=== PATIENT | male | born 1950 | race Caucasian/White ===

== ENCOUNTER 2018-11-04 10:39 | Observation (INO) | payer OTHER, MEDICARE ==
[~2018-11-04] VITALS: Ht 182.9 cm; Wt 112.6 kg
[~2018-11-04 10:39] MED LIST: AUGMENTIN 875-1 EACH PO; CIPRO HC OTIC S10 ML AD; PERCOCET 7.5-31 EACH PO
[2018-11-04] MEDS ORDERED: TAMSULOSIN HCL0.4 MG PO (10:54)
--- NOTE | 2018-11-04 13:57 | NUR ---
PT ADMITTED VIA STREACHER, VOIDED IN THE URINAL, AND THEN TO BED. WEARS HOME CPAP AND WILL LET RT KNOW THAT PATIENT MAY NEED A CPAP
--- NOTE | 2018-11-04 15:51 | NUR ---
PATIENTS HEART RATE REMAINS IN THE 120'S DR YOON NOTIFIED NEW ORDERS RECEIVED CARDIZEM 30MG PO Q 6 HOURS AND START NOW.
--- NOTE | 2018-11-04 16:21 | NUR ---
FILE SYSTEM INSTALLER HERE AT THIS TIME, PT HEART RATE IS CURRENTLY IN THE 120'S AT THIS TIME, AND THEN DECREASES TO THE 1TEENS.
--- NOTE | 2018-11-04 16:44 | NUR ---
ASSESSMENT COMPLETED AFTER ECHO COMPLETED. PT FEELS THAT HE IS UPTIGHT WITH BEING IN THE HOSPITAL AND NOT FEELING WELL.
--- NOTE | 2018-11-04 17:02 | NUR ---
DR ORANTES NOTIFIED OF BLOOD PRESUREE, NO NEW ORDERS AT THIS TIME.
--- NOTE | 2018-11-04 18:47 | NUR ---
PT STATES THAT HE DOES FEEL BETTER AT THIS TIME. HEART RAT IN THE 90'S TO 1-TEEN'S AT THIS TIME. REMAINS IN A-FIB.
--- NOTE | 2018-11-04 19:45 | NUR ---
PATIENT IS RESTFUL WITH EYES OPEN WATCHING TV. DENIES FEELING SOB, DENIES CHEST PAIN. STATES "I FEEL A LITTLE FLUSHED, THEY TURNED THE HEAT UP BECAUSE IT WAS SO COLD IN HERE." PATIENT IS AFEBRILE. PO DILTIAZEM AND METOPROLOL GIVEN. PATIENT DENIES FURTHER NEEDS. ASSESSMENT DONE. CALL LIGHT WITHIN REACH, AT BEDSIDE. HEART RATE <100, BP 144/96 (108),
--- NOTE | 2018-11-04 21:00 | NUR ---
PATIENT RESTFUL WATCHING TV, BEATHING IS EVEN AND UNLABORED. DENIES NEEDS AT THIS TIME. CALL LIGHT WITHIN REACH.
--- NOTE | 2018-11-04 22:00 | NUR ---
UPDATED DR. YOON ABOUT PATIENT'S HEART RATE >100 WITH ACTIVITY, HEART RATE HIGH 90s AT REST. NO NEW ORDERS AT THIS TIME, NOTIFY DR. YOON IF PATIENT'S HEART RATE BECOMES ELEVATED IN 130s AT REST AND MAINTAINING AT THIS LEVEL.
--- NOTE | 2018-11-04 23:00 | NUR ---
PATIENT UP TO BEDSIDE INDEPENDENTLY TO URINATE. HEART RATE BETWEEN 115 AND 135 WITH ACTIVITY. NOW RESTING IN BED AGAIN, BREATHING IS EVEN AND UNLABORED, DENIES FEELING SOB, NO CHEST PAIN. RT TO ROOM TO PUT PATIENT ON CPAP. DENIES FURTHER NEEDS. AT REST, HEART RATE BETWEEN 95 AND 110. CALL LIGHT WITHIN REACH.
--- NOTE | 2018-11-05 00:43 | NUR ---
PATIENT RESTFUL WITH EYES CLOSED, BREATHING IS EVEN AND UNLABORED, O2 SATURATION IS 98% WITH CPAP, RR 17. HEART RATE BETWEEN 95 AND 110 AT REST. BP 142/98 (108). CALL LIGHT WITHIN REACH.
--- NOTE | 2018-11-05 01:57 | NUR ---
PATIENT IS RESTFUL WITH EYES CLOSED. AWAKENS EASILY TO VOICE. STATES "I AM FEELING A LOT BETTER. I WAS ACTUALLY ABLE TO FALL ASLEEP FOR A LITTLE BIT." DENIES FEELING SOB, DENIES CHEST PAIN. UP TO BEDSIDE TO URINATE, HEART RATE BETWEEN 110 AND 130 WITH ACTIVITY. NOW RESTING IN BED AGAIN. DENIES FURTHER NEEDS. ASSESSMENT DONE, SCHEDULED METOPROLOL AND CARDIZEM GIVEN PO. CALL LIGHT WITHIN REACH.
--- NOTE | 2018-11-05 04:13 | NUR ---
PATIENT RESTING COMFORTABLY IN BED WITH EYES CLOSED. BREATHING IS EVEN AND UNLABORED, O2 SATURATION IS 92% WITH CPAP. HEART RATE REMAINS <100 WHILE AT REST, BP 111/83 (91). CALL LIGHT WITHIN REACH.
--- NOTE | 2018-11-05 05:28 | NUR ---
PATIENT SITTING AT BEDSIDE. URINATED SMALL AMOUNT. HEART RATE NOTED TO BE ELEVATED BETWEEN 110 AND 125. NOW RESTING IN BED AGAIN, BREATHING IS EVEN AND UNLABORED. NOW RESTING WITH CPAP AGAIN, HEART RATE <100. CALL LIGHT WITHIN REACH.
--- NOTE | 2018-11-05 06:59 | EKG ---
[facility] [address] [place] [address] Signed Atrial fibrillation with rapid ventricular response Low voltage QRS Septal infarct (cited on or before 04-NOV-2018) Abnormal ECG When compared with ECG of 04-NOV-2018 10:50, (Unconfirmed) Atrial fibrillation has replaced Atrial flutter Confirmed by LI YOON MD ([id number]) on 11/05/2018 6:59:40 AM Electronically Signed By: LI YOON MD 11/05/18 0659 PATIENT NAME: DAKOTAHMELISSA BRUCE Electrocardiogram DATE OF : 54 PHYSICIAN: LI YOON MD REPORT #: [id number] REPORT IS CONFIDENTIAL AND NOT TO BE RELEASED WITHOUT AUTHORIZATION
--- NOTE | 2018-11-05 07:00 | EKG ---
[facility] [address] [place] [address] Signed Atrial fibrillation with slow ventricular response Septal infarct (cited on or before 04-NOV-2018) Abnormal ECG When compared with ECG of 04-NOV-2018 10:50, (Unconfirmed) Vent. rate has decreased BY 82 BPM Confirmed by LI YOON MD ([id number]) on 11/05/2018 6:59:56 AM Electronically Signed By: LI YOON MD 11/05/18 0700 PATIENT NAME: DAKOTAHMELISSA Electrocardiogram DATE OF : 54 PHYSICIAN: LI YOON MD REPORT #: [id number] REPORT IS CONFIDENTIAL AND NOT TO BE RELEASED WITHOUT AUTHORIZATION
--- NOTE | 2018-11-05 07:11 | NUR ---
PATIENT UP TO BEDSIDE, ABLE TO VOID SMALL AMOUNT OF URINE. NOW RESTING IN BED AGAIN, BREATHING IS EVEN AND UNLABORED. HEART RATE UP TO 120 WITH ACTIVITY. BETWEEN 95 AND 110 AT REST. DENIES FURTHER NEEDS. CALL LIGHT WITHIN [facility].
--- NOTE | 2018-11-05 07:58 | NUR ---
Pt resting with hob elevated eating breakfast and watching tv. Assessment completed. VSS, am medication administered. HR remains irregular. Pt denies sob, chest pain or palpitations. Call light and h20 in reach. No further concerns or requests voiced.
--- NOTE | 2018-11-05 08:59 | NUR ---
PT RESTING SUPINE IN BED WITH HOB ELEVATED AND WATCHING TV. PT DENIES ANY NEW SYMPTOMS "NO I'M FEELING PRETTY GOOD NOW". PO FLOMAX ADMINISTERED. PT ATE 100% OF BREAKFAST AND CONTINUES TO PRODUCE QS CLEAR YELLOW URINE. FRESH ICE WATER AND CALL LIGHT IN REACH. NO FURTHER NEEDS OR CONCERNS VOICED.
--- NOTE | 2018-11-05 09:36 | NUR ---
PT RESTING IN BED WATCHING TV AND CONVERSING WITH FAMILY. VSS. PO METOPROLOL ADMINISTERED. CALL LIGHT AND H20 IN REACH. PT DENIES NEW SYMPTOMS OR NEEDS/CONCERNS AT THIS TIME.
--- NOTE | 2018-11-05 10:58 | NUR ---
pt sitting up in bed visiting with family. Pt denies sob, palpitations or chest pain. Pt denies needs or concerns. Urinal emptied of 350mls of clear yellow urine. call light and h20 in reach. HR remains to be mostly running between 80's to 90's at rest.
--- NOTE | 2018-11-05 12:00 | NUR ---
PT AWARE OF PLANNED TRANSFER TO MED SURG ROOM 112. REPORT GIVEN TO JUAN CHEN. PT TRANSFERED TO MED SURGE 112 VIA BED AND ALL PT'S PERSONAL BELONGINGS WERE SENT TO HIS NEW ROOM WEEL INCLUDING CPAP MACHINE WITH PT'S PERSONAL CPAP MASK. NO FURTHER CONCERNS OR REQUESTS WERE VOICED BY PT OR PT'S , WHO REMAINS WITH PATIENT. JUAN GUERRIER IN TO SEE PT. CALL LIGHT AND H20 IN REACH.
--- NOTE | 2018-11-05 12:38 | NUR ---
PT ARRIVED AT 1200, ALL LOBES ARE CLEAR, NO EDEMA NOTED. PT ALL LOBES ARE CLEAR, PT IS AAO X4, PT IS WALKING WELL AND DENIES DIZZINESS. WILL CONTINUE TO MONITOR.
--- NOTE | 2018-11-05 15:00 | NUR ---
PT IS AWAKE IN BED. NO NEEDS OR CONCERNS NOTED AT THIS TIME.
--- NOTE | 2018-11-05 17:35 | NUR ---
PATIENT IN BED WATCHING TV. IN ROOM. VITAL SIGNS AND I&O DONE. ICE WATER GIVEN. CALL LIGHT WITHIN REACH. NO OTHER NEEDS AT THIS TIME
--- NOTE | 2018-11-05 18:11 | NUR ---
PT TRX FROM CCU TO FLOOR AT 1200. SINCE THEN PT HAD NO ISSUES TO SPEAK OF. ALL LOBES ARE CLEAR, NO PERIPHERAL EDEMA NOTED. HR ON TELE # 10 IS IN THE 80'S -115. PT DENIES PALPATATIONS OR SOB. PT ALSO WALKED THE HALLWAY WITHOUT DIFFICULTY. NO NEW CONCERNS NOTED SO FAR THIS SHIFT.
--- NOTE | 2018-11-05 19:00 | NUR ---
SHIFT REPORT RECEIVED FROM JUAN CHEN. PT IN BED AWAKE AND VISITING WITH FAMILY AND FRIENDS. TELE #[address], HR WNL AND IRREGULAR. PT DENIES NEEDS AT THIS TIME. CALL LIGHT IN REACH.
--- NOTE | 2018-11-05 20:06 | NUR ---
ASSESSMENT COMPLETE. PT A/O X4, DENIES PAIN. SCHEDULED CARDIZEM ADMINISTERED. VSS. PT DENIES NEEDS AT THIS TIME. PT AMBULATES INDEPENDENTLY IN ROOM, PREPARING TO WALK IN HALLWAY WITH . IV FLUSHED AND PATENT AT THIS TIME. PT ON TELE #10, HR WNL, IRREGULAR RHYTHM.
--- NOTE | 2018-11-05 22:22 | NUR ---
EMPTIED URINAL AND BROUGHT FRESH ICEWATER. PT IS IN BED WITH SCDS ON. CALLED RT TO SET UP CPAP. HE DENIES FURTHER NEEDS. CALL LIGHT IS CLOSE.
--- NOTE | 2018-11-05 23:27 | NUR ---
PT RESTING IN BED, EYES CLOSED, RR EVEN AND UNLABORED. TELE #[address], HR 80'S-90'S AND IRREGULAR. RESTING ON COUCH, BOTH APPEAR COMFORTABLE. CALL LIGHT IN REACH.
--- NOTE | 2018-11-06 02:20 | NUR ---
ASSESSMENT COMPLETE. NO NEW CONCERNS. PT A/OX4 DENIES PAIN AND SOB. TELE #10, HR90'S, 120'S WHEN PT WAS ATTEMPTING TO GET OUT OF BED AND VOID VIA BEDSIDE URINAL. QUICKLY RESOLVED. REMAINS IRREGULAR. IN ROOM. CPAP MACHINE IN PLACE. NO FURTHER NEEDS, CALL LIGHT IN REACH.
--- NOTE | 2018-11-06 04:37 | NUR ---
PT HAD A VERY GOOD NIGHT. A/OX4, DENIED PAIN ALL SHIFT. TELE #10, IRREGULAR, HR 80'S-ONE TEENS. PT AMBULATES INDEPENDENTLY IN ROOM, USES CALL LIGHT APPROPERIATELY. CARDIAC DIET, TOLERATING WELL, NO NAUSEA THIS SHIFT, BOWEL TONES ACTIVE. CPAP AT NIGHT.
--- NOTE | 2018-11-06 06:04 | NUR ---
VITALS AND I&OS DONE AND CHARTED. CLEANED ROOM, GARBAGES EMPTIED. BEDSIDE TABLE AND CALL LIGHT IN REACH. FRESH ICE WATER GIVEN. PT NEEDS NOTHING AT THIS TIME.
[2018-11-06] MEDS ORDERED: TOPROL XL50 MG PO (09:48)
[2018-11-06] MEDS ORDERED: DILTIAZEM 24HR120 MG PO (09:48)
[2018-11-06] MEDS ORDERED: ASPIRIN EC325 MG PO (09:48)
--- NOTE | 2018-11-06 09:54 | NUR ---
PATIENT RESTING IN BED. FAMILY IN ROOM. VITAL SIGNS AND I&O DONE. CALL LIGHT WITHIN REACH. NO OTHER NEEDS AT THIS TIME
--- NOTE | 2018-11-06 10:00 | NUR ---
PT SALINE LOCKED AT THIS TIME.
--- NOTE | 2018-11-06 12:21 | NUR ---
PT SITTING IN BED AT THIS TIME, RESP EVEN AND NON LABORED. PERSONAL SUPPLIES AND CALL LIGHT WITHIN REACH.
--- NOTE | 2018-11-06 12:58 | NUR ---
PATIENT IN BED. AND RN IN ROOM. PATIENT IS DRESS AND THE LAST VITAL SIGNS WERE OBTAINED PRIOR DISCHARGE.
== END 2018-11-06 13:05 | disposition home or self-care (01) ==
LOC: ED 10:39 → CCU 10:42 → MS 11-05 12:00
PROVIDERS: ADMIT Internal Medicine
DX: I48.91 Unspecified atrial fibrillation (principal); R06.00 Dyspnea, unspecified; G47.33 Obstructive sleep apnea (adult) (pediatric); N40.0 Benign prostatic hyperplasia without lower urinary tract symptoms; Z79.899 Other long term (current) drug therapy; Z88.7 Allergy status to serum and vaccine
CPT/HCPCS: 71045; 80053; 83735; 84439; 84443; 84484; 85025; 93005; 93010; 93306; 94660; 96361; 96374; 99285-25; G0378; J7030

== ENCOUNTER 2022-07-27 15:31 | Emergency (ER) | payer MEDICARE, OTHER ==
[~2022-07-27] VITALS: Ht 182.9 cm; Wt 118.1 kg
[~2022-07-27 15:31] MED LIST changes: +ASPIRIN EC325 MG PO; +DILTIAZEM 24HR120 MG PO; +TAMSULOSIN HCL0.4 MG PO; +TOPROL XL50 MG PO
[2022-07-27] MEDS ORDERED: ELIQUIS5 MG PO (15:44)
[2022-07-27] MEDS ORDERED: NEURONTIN300 MG PO (15:52)
[2022-07-27] MEDS ORDERED: TRAMADOL HCL100 M2 PO (15:52)
[2022-07-27] MEDS ORDERED: ACETAMINOPHEN500 MG PO (15:53)
[2022-07-27] MEDS ORDERED: TIZANIDINE HCL4 M1 PO (15:54)
--- NOTE | 2022-07-31 20:43 | EKG ---
[facility] [address] [place] [place] [address] Signed Normal sinus rhythm Normal ECG When compared with ECG of 04-NOV-2018 11:39, Sinus rhythm has replaced Atrial fibrillation Confirmed by Tad Osorio MD () on 07/31/2022 8:42:42 PM Electronically Signed By: TAD OSORIO MD 07/31/222042 PATIENT NAME: DAKOTAHMELISSA Electrocardiogram DATE OF : 54 PHYSICIAN: TAD OSORIO MD REPORT #: [id number] REPORT IS CONFIDENTIAL AND NOT TO BE RELEASED WITHOUT AUTHORIZATION
== END 2022-07-27 20:56 | disposition home or self-care (01) ==
LOC: ED 15:31
DX: R07.2 Precordial pain (principal); I10 Essential (primary) hypertension; Z88.7 Allergy status to serum and vaccine; Z79.899 Other long term (current) drug therapy
CPT/HCPCS: 36415; 71045; 80053; 83690; 83735; 84484; 85025; 85379; 93005; 93010; 96374; 96375; 99285-25; J2270; J2405

== ENCOUNTER 2023-12-07 11:09 | Day surgery (SDC) | payer MEDICARE, OTHER ==
[~2023-12-07] VITALS: Ht 365.8 cm; Wt 118.0 kg
[~2023-12-07 11:09] MED LIST changes: +ACETAMINOPHEN500 MG PO; +ELIQUIS5 MG PO; +FISH OIL 1,0001 EAC6 PO; +IBLOOD GLUCOSE TEST STRIP 1 EA TEST VI PRN; +LACTATED RINGER'S 1,000 ML IV SCH; +LIDOCAINE HCL 1% 5 ML SDV INJ ONE; +MIDAZOLAM HCL 5 MG/5 ML VIAL IV PRN; +NEURONTIN300 MG PO; +OSTERA TABLET1 EACH PO; +SAW PALMETTO160 MG PO; +TIZANIDINE HCL4 M1 PO; +TRAMADOL HCL100 M2 PO; +fentaNYL citrate 100 MCG/2 ML VIAL IV PRN
[2023-12-07 12:23] VITALS: BP 163/91
[2023-12-07] MEDS ORDERED: MIDAZOLAM HCL 5 MG/5 ML VIAL ONE (13:00)
[2023-12-07] MEDS ORDERED: fentaNYL citrate 100 MCG/2 ML VIAL ONE (13:00)
--- NOTE | 2023-12-07 14:08 | NUR ---
12/07/23 1408 Sheets,Lee Ann 1400 PT ARRIVED TO PACU ON 3L VIA NC AND WAKES EASILY TO VERBAL STIMULI. PT DENIES PAIN. PLAN OF CARE DISCUSSED AND PT ENCOURAGED TO PASS GAS. 1407 O2 REMOVED.
[2023-12-07 14:30] VITALS: BP 134/80
--- NOTE | 2023-12-12 09:47 | OR ---
[facility] [address] [place], [place] [address] Signed DATE OF OPERATION: 12/07/2023 SURGEON: Garfield Grossman MD PREOPERATIVE DIAGNOSES: 1. Colon screening. 2. Known right inguinal hernia. POSTOPERATIVE DIAGNOSES: 1. Small polyp left colon (excised). 2. Internal hemorrhoidal changes. PROCEDURE: Total colonoscopy to cecum with cold morcellation polypectomy x1. ANESTHESIA: Intravenous sedation; fentanyl 150 mcg and Versed 10 mg. INDICATION: This 73-year-old white man is a patient of Mando Franklin. He underwent left inguinal hernia repair by me in 2013. He was referred for new onset right inguinal hernia and consideration of colonoscopy. He is planned for operation this (today is Wednesday). He has undergone a TURP in [place], [place] and is doing well in that regard. He does have atrial fibrillation for which he is chronically anticoagulated, though he did undergo radiofrequency ablation in the past. He is not known to have paroxysmal atrial fibrillation. He is here for colon screening he last underwent colonoscopy. He has been withheld of his Eliquis for the past three days. He understands the risk of colonoscopy including but not limited to bleeding, infection, perforation and wished to proceed. FINDINGS: The prep was good. Complete colonoscopy was undertaken. Full intubation of the cecum was not forthcoming though it was visualized and the mucosa behind the ileocecal valve elevated showing no sign of abnormality. He had one small polyp, possibly hyperplastic in the left colon which was excised and retroflexed view confirmed internal hemorrhoidal changes as well. PROCEDURE IN DETAIL: The patient was brought to the endoscopy suite and placed in the lateral decubitus position and given intravenous sedation to the point of slurred speech and nystagmus. Electronically Signed By: GARFIELD GROSSMAN MD 12/12/23 0947 PATIENT NAME: MELISSA CLAIRE JR OPERATIVE REPORT DATE OF : 54 REPORT #: [id number] PHYSICIAN: GARFIELD GROSSMAN MD PCP: MANDO FRANKLIN PAC REPORT IS CONFIDENTIAL AND NOT TO BE RELEASED WITHOUT AUTHORIZATION [facility] [address] [place], [place] [address] Signed Digital rectal examination was normal. An Olympus video colonoscope was passed in the rectum and manipulated throughout the colon ultimately visualizing the cecum and right colon. Various maneuvers were made to advance the scope including a " " with forceps grasping the cecum. Ultimately, the cecum could be reasonably well visualized, but the area behind the ileocecal valve could not be and therefore the mucosa was grasped and elevated, showing no sign of neoplasm. Abdominal wall stabilization and so forth were all unsuccessful allowing for full and complete intubation of the cecum. Palpation of the right lower quadrant did affirm that the right colon and cecum were intubated, however. The scope was then withdrawn and examination throughout showed no sign of abnormality until approximately 80 cm from the anal verge, where a small polyp was noted. It was smooth and so forth and likely represented hyperplasia. It was excised completely. Further withdrawal showed no other abnormality. Retroflexed view of the rectum was notable for internal hemorrhoidal change, but no other problems. The scope was straightened, withdrawn and removed. The patient was taken to the recovery room in good condition. CONCLUDING DIAGNOSIS: Polyp left side and internal hemorrhoids. PLAN: Recommend repeat colonoscopy in 5 years, sooner if clinically indicated. We will plan for right inguinal hernia repair to be performed this week. He will remain off his Eliquis for the time being. MD GENEVA Owens/NELLAL /[id number] cc: LEOPOLDO Echols Electronically Signed By: GARFIELD GROSSMAN MD 12/12/23 0947 PATIENT NAME: MELISSA CLAIRE OPERATIVE REPORT DATE OF : 54 REPORT #: [id number] PHYSICIAN: GARFIELD GROSSMAN MD PCP: MANDO FRANKLIN PAC REPORT IS CONFIDENTIAL AND NOT TO BE RELEASED WITHOUT AUTHORIZATION [facility] [address] [facility] [place] [address] Signed Copies: ~ Electronically Signed By: GARFIELD GROSSMAN MD 12/12/23 0947 PATIENT NAME: MELISSA CLAIRE OPERATIVE REPORT DATE OF : 54 REPORT #: [id number] PHYSICIAN: GARFIELD GROSSMAN MD PCP: MANDO FRANKLIN PAC REPORT IS CONFIDENTIAL AND NOT TO BE RELEASED WITHOUT AUTHORIZATION
== END 2023-12-07 14:45 | disposition home or self-care (01) ==
LOC: DS 11:09 → OPS 11:09 → DS 13:00 → OPS 14:45
PROVIDERS: ATTEND Surgery
PROC: 0DBG8ZZ Excision of Left Large Intestine, Via Natural or Artificial Opening Endoscopic (ICD-10-PCS; principal; 2023-12-07 13:00)
DX: Z12.11 Encounter for screening for malignant neoplasm of colon (principal); K63.5 Polyp of colon; K64.8 Other hemorrhoids; K40.90 Unilateral inguinal hernia, without obstruction or gangrene, not specified as recurrent; N40.1 Benign prostatic hyperplasia with lower urinary tract symptoms; E66.01 Morbid (severe) obesity due to excess calories; I48.91 Unspecified atrial fibrillation; Z79.01 Long term (current) use of anticoagulants; Z68.44 Body mass index [BMI] 60.0-69.9, adult
CPT/HCPCS: 88305; 99153; G0500; J2250; J3010; J7121

== ENCOUNTER 2023-12-09 05:45 | Day surgery (SDC) | payer MEDICARE, OTHER ==
[2023-12-07 11:50] VITALS: BP 163/91
[~2023-12-09] VITALS: Ht 182.9 cm; Wt 115.9 kg
[~2023-12-09 05:45] MED LIST changes: -IBLOOD GLUCOSE TEST STRIP 1 EA TEST VI PRN; -LIDOCAINE HCL 1% 5 ML SDV INJ ONE; -MIDAZOLAM HCL 5 MG/5 ML VIAL IV PRN; -fentaNYL citrate 100 MCG/2 ML VIAL IV PRN
[2023-12-09 06:00] VITALS: BP 178/80
[2023-12-09] MEDS ORDERED: IBLOOD GLUCOSE TEST STRIP 1 EA TEST VI PRN ×2 (07:00→08:45)
[2023-12-09] MEDS ORDERED: CEFAZOLIN SODIUM 2 GM/20 ML SYR IV SCH (07:00)
[2023-12-09] MEDS ORDERED: HEParin SOD (PORCINE) 5,000 UNIT/0.5 ML SYR SUB-Q SCH (07:00)
[2023-12-09] MEDS ORDERED: LIDOCAINE HCL 1% 5 ML SDV INJ ONE (07:00)
[2023-12-09] MEDS ORDERED: fentaNYL citrate 100 MCG/2 ML VIAL ONE (07:24)
[2023-12-09] MEDS ORDERED: KETAMINE in NS 50 MG/5 ML SYR ONE (07:24)
[2023-12-09] MEDS ORDERED: SODIUM CHLORIDE 0.9% 40 ML IV ONE (07:25)
[2023-12-09] MEDS ORDERED: ROCURONIUM BROMIDE 50 MG/5 ML SYR ONE ×2 (07:25→07:58)
[2023-12-09] MEDS ORDERED: DEXAMETHASONE SOD PHOS 4 MG/ML VIAL ONE (07:25)
[2023-12-09] MEDS ORDERED: ondansetron HCL 4 MG/2 ML VIAL ONE (07:25)
[2023-12-09] MEDS ORDERED: LIDOCAINE HCL 2% 5 ML SDV ONE (07:25)
[2023-12-09] MEDS ORDERED: propofoL 200 MG/20 ML VIAL ONE (07:25)
[2023-12-09] MEDS ORDERED: ACETAMINOPHEN 1,000 MG/100 ML VIAL ONE (07:25)
[2023-12-09] MEDS ORDERED: MAGNESIUM SULFATE 1 GM/2 ML VIAL ONE (07:25)
[2023-12-09] MEDS ORDERED: dexmedeTOMIDine HCl 200 MCG/2 ML VIAL ONE (07:25)
--- NOTE | 2023-12-09 07:39 | NUR ---
ROUNDS. PT GONE FOR PROCEDURE. PROVIDED PRAYER.
[2023-12-09] MEDS ORDERED: ePHEDrine sulfate 50 MG/ML AMP ONE (07:55)
[2023-12-09] MEDS ORDERED: ondansetron HCL 4 MG/2 ML VIAL IV PRN (08:45)
[2023-12-09] MEDS ORDERED: NALOXONE HCL 0.4 MG SYR IV PRN (08:45)
[2023-12-09] MEDS ORDERED: fentaNYL citrate 100 MCG/2 ML VIAL IV PRN (08:45)
[2023-12-09] MEDS ORDERED: KETOROLAC TROMETHAMINE 30 MG/ML VIAL IV PRN (08:45)
[2023-12-09] MEDS ORDERED: SUGAMMADEX SODIUM 200 MG/2 ML ML ONE (09:05)
[2023-12-09] MEDS ORDERED: OXYCODONE/APAP 7.5/325 TAB PO PRN (09:45)
[2023-12-09] MEDS ORDERED: LACTATED RINGER'S 1,000 ML IV SCH (09:45)
[2023-12-09] MEDS ORDERED: IBUPROFEN 600 MG TAB PO PRN (09:45)
[2023-12-09] MEDS ORDERED: ACETAMINOPHEN 500 MG TAB PO PRN (09:45)
--- NOTE | 2023-12-09 09:45 | NUR ---
12/09/23 0945 Sheets,Lee Ann 0903 PT ARRIVED TO PACU ON 6L VIA MASK AND ORAL AIRWAY IN PLACE. RESP EVEN AND UNLABORED. VSS. 0937 PT WOKE TO TACTILE STIMULI AND ORAL AIRWAY REMOVED. PT EASILY FALLS BACK TO SLEEP AND MASK REMAINS IN PLACE. 0940 PT WAKES AND O2 MASK REMOVED AND PT DENIES NAUSEA AND PAIN. PT EASILY FALLS BACK TO SLEEP WITH SMALL AMOUNT OF SNORING.
[2023-12-09] MEDS ORDERED: ACETAMINOPHEN500 MG PO (09:46)
[2023-12-09] MEDS ORDERED: OXYCODON-ACETA1 EAC2 PO (09:46)
[2023-12-09] MEDS ORDERED: IBUPROFEN600 MG PO (09:47)
[2023-12-09 10:20] VITALS: BP 171/80
[2023-12-09 10:46] VITALS: BP 153/73
--- NOTE | 2023-12-09 10:47 | NUR ---
PT ARRIVED TO DAY SURGERY FROM PACU AT APPROX 1015. REPORT RECEIVED FROM RN EDMUND Ceballos VISUALIZED SURGICAL DRSG WITH SALES AND SERVICE ADVISOR AND NOTED SMALL AMT OF BLOOD SHADOWING ON DISTAL PORTION OF DRSG. EBL REPORTED WAS 10ML. PT RECEIVED 1050 OF LR IN IV DURING SURGERY/PACU TIME. PUCU RN REPORTS PT VOIDED 200ML URINE FOR THEM, AFTER SURGERY. AT APPROX 1020, PT VOIDED ANOTHER 300 ML OF PALE, CLR, YELLOW URINE USING URINAL. PT WITH SOME NAUSEA. IV ZOFRAN GIVEN AT APPROX 1040 WITH IMPROVEMENT IN SYMPTOMS REPORTED. PT CURRENTLY DENIES PAIN. WAS AT PTS BEDSIDE UPON HIS RETURN, BUT HAS SINCE LEFT TO TAKE PTS PERCCET RX TO PHARMACY TO BE FILLED. BILAT BEDRAILS UP WITH BED IN LOW POSTION AND WHEELS LOCKED FOR PTS SAFETY. BP UPON PTS RETRUN CONT TO BE ELEVATED AT 171/80, BUT HAS SINCE COME DOWN TO 153/73 AFTER CONTROL OF NAUSEA. CALL LIGHT LEFT IN PTS REACH FOR ANY NEEDS HE MAY HAVE. NO USE OF CPAP NEEDED IN PACU OR AT THIS TIME.
[2023-12-09 11:40] VITALS: BP 159/75
--- NOTE | 2023-12-09 11:40 | NUR ---
INTO PTS ROOM AT APPROX 1120 FOR REASSESSMENT. PT ASKING TO USE URINAL. LET PT KNOW THAT HE IS ALLOWED TO USE RESTROOM IF HE FEELS UP TO WALKING A SHORT DISTANCE. PT AGREEABLE. PT ASSITED IN SITTING ON EDGE OF BED. PT REMINDED TO BRACE SURGICAL INCSION WITH HIS HAND FOR MOVEMENT. PT DEMONSTRATED UNDERSTANDING. PT REPORTED SOME "LIGHTHEADEDNESS" WITH SITTING UP. INSTRUCTED PT TO KEEP SEATED FOR A COUPLE MINS TO SEE IF IT IMPROVES. AFTER A COUPLE MINS, LIGHTHEADEDNESS RESOLVED AND PT AGREEABLE TO STAND UP. UPON STANDING, PT INCONTINENT OF URINE, BUT WAS ABLE TO STOP URINE FLOW PART WAY THROUGH. PT EXPRESSED APOGOLGY FOR INCONTINENT EPISODE AND WAS REASSURED THAT THERE WAS NOTHING TO BE APOLOGETIC FOR. ASKED PT IF HE FELT HE STILL NEEDED TO VOID MORE, FOR WHICH HE REPORTED HE DID. ASKED PT IF HE FELT HE COULD MAKE IT TO TOILET OR WOULD LIKE TO USE URINAL. PT CHOOSE URINAL, BUT ASKED TO HAVE ASSIT, HE REPORTS HE HAS A "SHY BLADDER" WITH UNFAMILIAR PEOPLE IN ROOM. PT SAT ON EDGE OF BED WITH RIGHT BEDSIDE HIM AND URINAL IN HAND. ALERTED THIS NURSE ONCE PT WAS DONE WITH URINAL. PT WAS STILL UNABLE TO VOID AND ASKED FOR A WALKER TO GET TO RESTROOM TO TRY THERE. WALKER OBTAINED, PTS GOWN CHANGED D/T URINE ON PREVIOUS GOWN FROM INCONTINENT EPISODE. PT ASSISTED TO STANDING POSITION WITH NURSE SBA AND USE OF FWW. PT AMBULATED TO RESTROOM WITHOUT ISSUES. WENT INTO RESTROOM WITH PT AT HIS REQUEST. PT WAS ABLE TO VOID IN RESTROOM. PTS IV WAS SL PRIOR TO USING URINAL/TOILET. ONCE BACK IN BED, INCISION WAS OBSERVE. SMALL AMT MORE OF SS DRAINAGE NOTED ON DISTAL PORTION OF DRSG. PT EDUCATED ON HIS LIFTING RESTICTION OF NO MORE THAN 20 POUNDS FOR THE NEXT 4 WEEKS. PT VERBALIZED UNDERSTANDING. PT HAS EATEN SMALL AMT OF JELLO AND SOME CRACKERS AND DRANK WATER WITHOUT ISSUES. REMAINS AT BEDSIDE. CALL LIGHT WITHIN REACH.
[2023-12-09 12:27] VITALS: BP 143/75
--- NOTE | 2023-12-09 12:33 | NUR ---
INTO PTS ROOM AT APPROX 1215 FOR ASSESSMENT. PT REPORTING PAIN 6/10 WITH REST AND RELAXATION. GIVEN 1 TAB PERCOCET 7.5/325MG TAB FOR RELIEF. BP HAS CONTINUED TO IMPROVE POST-OP. PT DENIES NASUEA AND LIGHTHEADEDNESS. PT HAS EATEN AND DRANK FLUIDS AND TOELRATED BOTH WELL. PT VERBALIZED FELLING LIKE HE IS UP TO GOING HOME NOW THAT ALL CRITERIA HAS BEEN MET FOR DC. PT LEFT SITTING UP ON EDGE OF BED WITH IN ROOM TO HELP HIM GET DRESSED.
--- NOTE | 2023-12-09 12:55 | NUR ---
INTO PTS ROOM FOR DISCHARGE INSTRUCTIONS AND TO DC IV AT APPROX 1245. VS TAKEN. PT REPORTS PAIN HAS IMPROVED TO 4/10 AFTER PERCOCET WAS GIVEN. IV IN LFA REMOVED, TIP INTACT, PRESSURE DRSG WITH GAUZE AND COBAN APPLIED. PT INFORMED HE MAY REMOVE AFTER 15-20 MINS. PT EDUCATED AGAIN ON LIFTING RESTICTIONS, F/U APPT RESUMPTION OF ELIQUIS, WOUND CARE, IBU USE UNTIL RESUMING ELIQUIS ON WEDNESDAY. PT VERBALIZED UNDERSTANDING THAT HE NEEDS TO STOP TAKING THE IBU ON WEDNESDAY NIGHT, SO THAT HE MAY START TAKING HIS ELIQUIS ON WEDNESDAY MORNING. BOTH PT AND HIS VERBALIZE UNDERSTANDING THIS. PT WAS ABLE TO TRASNFER FROM BED TO WC USING NURSE SBA WITH FWW. PT DISCHARGED OFF UNIT TO PASSENGER SIDE OF WIFES VEHICLE AT APPROX 1255. ALL BELONGINGS TAKEN WITH HIM AND PT AND REPORT NO FURHTER QUESTIONS OR CONCERNS AT THIS TIME.
[2023-12-09 13:00] VITALS: BP 168/83
--- NOTE | 2023-12-12 09:47 | OR ---
[facility] [address], [place] [address] Signed DATE OF OPERATION: 12/09/2023 SURGEON: Garfield Grossman MD PREOPERATIVE DIAGNOSIS: Right inguinal hernia. POSTOPERATIVE DIAGNOSIS: 1. Large bulky right direct inguinal hernia. 2. Large lipoma of cord. PROCEDURES: 1. Repair of right inguinal hernia including implantation of Prolene mesh underlay technique. 2. Excision of right cord lipoma. ANESTHESIA: General endotracheal; Delbert Peña, PULPER OPERATOR and local 10 mL of 0.25% Marcaine with epinephrine. INDICATIONS: This is a 73-year-old white man is a patient of LEOPOLDO Echols. He is known to me from the past having undergone left inguinal hernia repair in the distant past. The patient has put on a fair amount of weight since I last saw him. He underwent colonoscopy two days ago, which was essentially normal. He has developed a right inguinal hernia, which is reducible but symptomatic. He is admitted at this time to undergo repair of the right inguinal hernia. He understands the risk of bleeding, infection, recurrence and other unforeseen complications. FINDINGS: A very bulky direct hernia was noted. There was no sign of indirect hernia sac. The cord structures were normal. There was a large lipoma of the cord, which was excised as well. Repair consisted of invagination of the floor of the inguinal canal with implantation of Prolene mesh in an underlay properitoneal position as well as excision of the cord lipoma. DESCRIPTION OF PROCEDURE: The patient was brought to the operating room, given a general endotracheal anesthetic. Preoperative antibiotic Ancef was given. Sequential compression device stockings used. The abdomen was clipped and prepared with a chlorhexidine solution and draped sterilely. Electronically Signed By: GARFIELD GROSSMAN MD 12/12/23 0947 PATIENT NAME: MELISSA CLAIRE JR OPERATIVE REPORT DATE OF : 54 REPORT #: [id number] PHYSICIAN: GARFIELD GROSSMAN MD PCP: MANDO FRANKLIN PAC REPORT IS CONFIDENTIAL AND NOT TO BE RELEASED WITHOUT AUTHORIZATION [facility] [address], [place] [address] Signed An incision was made cephalad to the right pubic tubercle and dissection carried through the subcutaneous tissue with electrocautery. Attenuated fibers of the external oblique were incised revealing underlying very bulky hernia markedly admixed with the cord itself. Using blunt dissection, the cord and hernia structures were freed from the floor of the canal. Bulky hernia was inseparable from the cord initially. With meticulous care, the hernia was freed from the cord itself revealing a relatively large lipoma as well. The lipoma was freed from the cord structures, isolated and at its root doubly clamped and divided and the lipoma sent for pathology. The pedicles of the lipoma were secured with 2-0 silk ties. The cord was then freed more fully from the bulky hernia itself. The hernia was found to be related to the floor of the canal. There was no sign of indirect component to it. Once the cord structures were freed completely from the floor, good visualization of the hernia could be ascertained showing essentially a total blow out of the floor of the inguinal canal. The attenuated fibers of the fascia transversalis were incised with electrocautery and blunt properitoneal fat . A segment of Prolene mesh was cut to an elliptical configuration and secured in an underlay technique with interrupted 2-0 Prolene suture. Special care was taken to secure the mesh from the pubic tubercle laterally along the shelving edge of Poupart ligament. A defect was cut in the graft to accommodate the cord structures. An Allis clamp was applied to the tendon of the transversus abdominis and the more medial leaf of the Prolene suture secured in an underlay technique as well with interrupted 2-0 Prolene. The tails of the graft were carried around the cord with meticulous care, securing them laterally but avoiding encumbrance of local nerves. The aperture for the cord was closed a bit more with Prolene to allow for accommodation of the cord, but without excessive tightness to it. Irrigation was undertaken and 10 mL of 0.25% Marcaine with epinephrine was injected locally. Some Neelima was applied to the floor of the canal for hemostatic benefit. The external oblique was re-approximated as much as possible laterally, but there was attenuation of the bulk of it and most of it was not closed. Lorenzo layer was reapproximated with interrupted 2-0 Vicryl and skin closed with running subcuticular 3-0 Vicryl. Steri-Strips were applied as was Acticoat dressing. The patient tolerated the procedure well, was extubated without incident, taken to the recovery room in good condition. Sponge, needle, and instrument counts reported as correct x3. MD GENEVA Owens/NELLAL /[id number] Electronically Signed By: GARFIELD GROSSMAN MD 12/12/23 0947 PATIENT NAME: DAKOTAHMELISSA BARRERA OPERATIVE REPORT DATE OF : 54 REPORT #: [id number] PHYSICIAN: GARFIELD GROSSMAN MD PCP: MANDO FRANKLIN PAC REPORT IS CONFIDENTIAL AND NOT TO BE RELEASED WITHOUT AUTHORIZATION [facility] [address] [place], [place] [address] Signed cc: LEOPOLDO Echols Copies: ~ Electronically Signed By: GARFIELD GROSSMAN MD 12/12/23 0947 PATIENT NAME: MELISSA CLAIRE OPERATIVE REPORT DATE OF : 54 REPORT #: [id number] PHYSICIAN: GARFIELD GROSSMAN MD PCP: MANDO FRANKLIN PAC REPORT IS CONFIDENTIAL AND NOT TO BE RELEASED WITHOUT AUTHORIZATION
--- NOTE | 2023-12-13 16:50 | PATH ---
[facility] [address] [facility] [place], [place] [address] Signed SPECIMEN(S): A LIPOMA OF CORD SPECIMEN SOURCE: A. LIPOMA OF CORD CLINICAL HISTORY: Right inguinal hernia repair. FINAL PATHOLOGIC DIAGNOSIS: Designated "lipoma of cord": - Mature adipose tissue, clinically lipoma BRP MICROSCOPIC EXAMINATION: Histologic sections of all submitted blocks are examined by light microscopy. These findings, together with the gross examination, support the pathologic diagnosis. GROSS DESCRIPTION: The specimen, labeled and designated "Sriram, A" and designated on the requisition "lipoma of cord," is received in formalin and consists of a portion of yellow-vásquez fatty tissue (8.0 x 2.9 x 2.0 cm). The specimen is sectioned to reveal a yellow-vásquez lobulated soft and fatty cut surface. Copper Etcher sections are submitted in cassette A1. AC (under the direct supervision of a pathologist) The Gross Description was prepared using a voice recognition system. The report was reviewed for accuracy; however, sound-alike word errors, addition and/or deletions may occur. If there is any question about this report, please contact Client Services. ADDITIONAL NOTES: Immunohistochemical and/or in situ hybridization studies if performed in this case included appropriate positive controls that reacted as expected. This test was developed and its performance characteristics determined by [facility]. It has not been cleared or approved by the U.S. Food and Drug Administration. The FDA has determined that such clearance or approval is not necessary. This test is used for clinical purposes. It should not be regarded as investigational or for research. [facility] is certified under the Clinical Laboratory Improvement Amendments of 1988 (CLIA) as qualified to perform high complexity clinical PATIENT NAME: MELISSA CLAIRE JR PATHOLOGY DATE OF : 54 REPORT #: [id number] PHYSICIAN: MARIANA PATHOLOGY PCP: MANDO FRANKLIN PAC REPORT IS CONFIDENTIAL AND NOT TO BE RELEASED WITHOUT AUTHORIZATION [facility] [address] [facility] [place] [address] Signed laboratory testing. PERFORMING LABORATORY: Technical component was performed by [facility], [address] [place] [address] (CLIA# [id number]). Professional interpretation was performed by [facility] - [address] [id number] Diagnostician: Matt Antoine MD Pathologist Electronically Signed 12/13/2023 Copies: ~ PATIENT NAME: MELISSA CLAIRE JR PATHOLOGY DATE OF : 54 REPORT #: [id number] PHYSICIAN: MARIANA PUGA PCP: MANDO FRANKLIN PAC REPORT IS CONFIDENTIAL AND NOT TO BE RELEASED WITHOUT AUTHORIZATION
== END 2023-12-09 13:02 | disposition home or self-care (01) ==
LOC: DS 05:45
PROVIDERS: ATTEND Surgery
PROC: 0YQ50ZZ Repair Right Inguinal Region, Open Approach (ICD-10-PCS; principal; 2023-12-09 07:30)
DX: K40.90 Unilateral inguinal hernia, without obstruction or gangrene, not specified as recurrent (principal); D17.6 Benign lipomatous neoplasm of spermatic cord; I48.91 Unspecified atrial fibrillation; N40.1 Benign prostatic hyperplasia with lower urinary tract symptoms; G47.30 Sleep apnea, unspecified; E66.01 Morbid (severe) obesity due to excess calories; Z88.7 Allergy status to serum and vaccine; Z88.8 Allergy status to other drugs, medicaments and biological substances; Z79.899 Other long term (current) drug therapy
CPT/HCPCS: 00840; 88304; C1781; J0131; J0690; J1100; J1644; J2001; J2405; J2704; J3010; J3475; J3490; J7121